=== PATIENT | male | born 1970 | race Two or more races ===

== ENCOUNTER 2024-07-17 09:22 | Emergency (ER) | payer MEDICAID, SELFPAY ==
[2024-07-17 09:30] VITALS: BP 179/122; BP 199/116; PULSE 106; RESP 18; TEMP 36.8; O2SAT 97; BMI 28.8
--- NOTE | 2024-07-17 09:31 | EKG_ITS ---
[facility] Test Date: 2024-07-17 Pat Name: JAYNE MONCADA Department: Room: - Gender: Male Campaign Analyst: : 1970 Requested By: Antonio Sparks (SOFTWARE DEPLOYMENT ENGINEER) Order Number: [id number] Reading MD: Antonio Sparks (SOFTWARE DEPLOYMENT ENGINEER) Measurements Intervals [place] Rate: 94 P: 41 WA: 145 QRS: -27 QRSD: 90 T: 21 QT: 349 QTc: 437 Interpretive Statements SINUS RHYTHM BORDERLINE LEFT AXIS DEVIATION [QRS AXIS < -20] Compared to ECG 07/20/2022 19:33:53 No significant changes /[id number]/[email or web address]/[id number].pdf
--- NOTE | 2024-07-17 09:45 | XR_ITS ---
Examination: PA lateral chest 2 views TECHNIQUE: Upright PA lateral chest 2 views Date and time: July 17, 2024 0952 hours INDICATIONS: Chest pain today. FINDINGS: Normal heart size No lobar pneumonia or pulmonary edema Mild osteopenia IMPRESSION: No lumbar pneumonia or pulmonary edema
[2024-07-17 09:58] VITALS: BP 179/122; PULSE 106
[2024-07-17] MEDS: cloNIDine HCL 0.1 MG TABLET 0.2 MG PO (09:58)
--- NOTE | 2024-07-17 09:58 | PD.EDRME ---
Rapid Medical Screening Exam RME Arrival date/time: 07/17/24 09:22 54-year-old male history of hypertension presents to the emergency department today for complaints of chest pain Chief Complaint: Chest Pain Time Seen by Provider: 07/17/24 09:28 Vital signs: Vital Signs Temperature 98.2 F 07/17/24 09:30 Pulse Rate 106 H 07/17/24 09:30 Respiratory Rate 18 07/17/24 09:30 Blood Pressure 179/122 H 07/17/24 09:30 Pulse Oximetry (%) 97 07/17/24 09:30 Oxygen Delivery Method Room Air 07/17/24 09:30
[2024-07-17 10:36] LABS: Basophils # (Auto) 0.1 Thou/mm3 (0.0-0.2); Basophils % (Auto) 1 % (0-2.5); Eosinophils # (Auto) 0.1 Thou/mm3 (0.0-0.5); Eosinophils % (Auto) 1 % (0-10); Hemoglobin 14.8 g/dL (13.5-16.0); Immature Granulocytes % (Auto) 1 % (0-0); Immature Granulocytes Auto 0.08 Thou/mm3 (0.00-0.00); Lymphocytes # (Auto) 2.4 Thou/mm3 (1.0-4.8); Lymphocytes % (Auto) 24 % (10-50); Mean Corpuscular HGB Conc 34.4 g/dl (31.0-37.0); Mean Corpuscular Hemoglobin 30.3 pg (25.0-35.0); Mean Corpuscular Volume 88 fL (80-100); Monocytes # (Auto) 0.9 Thou/mm3 (0.0-0.8); Monocytes % (Auto) 9 % (0-12); Neutrophils # (Auto) 6.6 Thou/mm3 (1.8-7.7); Neutrophils % (Auto) 65 % (37-80); Nucleated Red Blood Cell % 0 /100 WBC (0); Platelet Count 345 Thou/mm3 (140-440); RDW Standard Deviation 39.2 fL (35.1-43.9); Red Blood Count 4.88 Miln/mm3 (4.50-5.90); White Blood Count 10.2 Thou/mm3 (3.8-10.6)
[2024-07-17 10:48] LABS: Alanine Aminotransferase 26 U/L (10-49); Albumin, Serum 4.8 gm/dL (3.5-5.0); Albumin/Globulin Ratio 1.7 (1.2-2.2); Alkaline Phosphatase 134 U/L (46-116); Anion Gap 9 (7-16); Aspartate Amino Transferase 22 U/L (0-34); BUN/Creatinine Ratio 12 Ratio (12-20); Bilirubin,Total 0.5 mg/dL (0.3-1.2); Blood Urea Nitrogen 12 mg/dL (9-23); Calcium 10.3 mg/dL (8.3-10.6); Calcium (Corrected) 10.3 mg/dL (8.5-10.1); Carbon Dioxide 30.1 mMol/L (20.0-31.0); Chloride 99 mMol/L (98-107); Estimated Creatinine Clearance 83.5 mL/min (>60); Globulin 2.9 gm/dL (2.3-3.5); Glucose 154 mg/dL (74-106); Lipase 35 U/L (12-53); Osmolality,Calculated 278 (275-295); Potassium 3.5 mMol/L (3.4-5.1); Sodium 138 mMol/L (136-145); Total Protein 7.7 gm/dL (5.7-8.2); Troponin I < 0.020 ng/mL (0.0-0.045); eGFR > 60 See Note
[2024-07-17 12:20] VITALS: BP 131/82; PULSE 92; RESP 16; TEMP 37.1; O2SAT 99
--- NOTE | 2024-07-17 12:47 | EDNOTE_ITS ---
ED General RME/HPI General Chief complaint: Chest Pain Stated complaint: RIGHT CHEST PAIN X WEDNESDAY Time Seen by Provider: 07/17/24 09:28 Arrival date/time: 07/17/24 09:22 CC: Chest pain HPI onset 3 days ago persistent in nature does not wax and wane, worsening with flexion extension of his arm deep breath denies cough shortness of breath difficulty breathing. Denies any heavy lifting with his left arm prior to arrival. Patient is awake alert oriented nontoxic-appearing not in any acute distress currently the pain is 2-3 on a 10 scale. RME / HPI RME / HPI narrative: 07/17/24 09:22 54-year-old male history of hypertension presents to the emergency department today for complaints of chest pain Related Data Home Medications ?Medication ?Instructions ?Recorded ?Confirmed hydrochlorothiazide 12.5 mg capsule 1 cap QDAY 2 09/17/21 losartan 50 mg tablet 1 tab QDAY 09/17/21 09/17/21 Previous Rx's ?Medication ?Instructions ?Recorded omeprazole 20 mg capsule,delayed 20 mg PO BID #60 caps 09/17/21 release metoclopramide HCl 10 mg tablet 10 mg PO QID PRN nause a and 04/02/22 (Reglan) vomiting #30 tabs ondansetron HCl 4 mg tablet 4 mg PO TID PRN nausea and 07/21/22 vomiting #20 tabs amoxicillin 875 mg-potassium 1 tab PO BID #14 tabs 04/16 clavulanate 125 mg tablet meloxicam 7.5 mg tablet 7.5 mg PO QDAY #10 tabs 06/23 08/16 Allergies Allergy/AdvReac Type Severity Reaction Status Date / Time No Known Allergies Allergy Verified 07/17/24 09:25 Review of Systems Review of Systems Narrative Review of Systems: GEN: No fever, no chills, no weight loss EYES: No discharge, no visual changes, no pain HEENT: No ear pain, no congestion, no sore throat PULM: No shortness of breath, no cough, no congestion CV: + chest pain, no dyspnea on exertion, no palpitations GI: No nausea, no vomiting, no diarrhea, no pain, no constipation : No frequency, no urgency, no dysuria MUSC/SKEL: No joint pain, no back pain SKIN: No rash PSYCH: No hallucinations, no depression HEME/LYMPH: No easy bleeding or bruising tendencies NEURO: No weakness, no headache Past Medical History Past Medical History CARDIAC: Positive Hypertension; Negative Cardiac Disorders or Congestive Heart Failure RESPIRATORY: Negative Chronic Obstructive Pulmonary Disease (COPD) or Asthma GASTROINTESTINAL: Positive Diverticulitis GENITOURINARY: Negative Renal Disease ENDOCRINE: Negative Diabetes Mellitus Type 1 or Diabetes Mellitus Type 2 HEMATOLOGIC: Negative Sickle Cell Disease Social History SMOKING STATUS: Never smoker ED Exam Narrative Physical exam: [General: Not in any acute distress Head normocephalic HEENT: Eyes pupils are PERRLA EOMs are moist membranes on the subsystems HEENT within acceptable limits Neck is supple nontender Chest equal chest rise nontender to palpation Respiratory: Clear to auscultation no wheezes crackles or rubs CV: Rate rhythm is regular no murmurs rubs or clicks Abdomen is distended secondary to body habitus soft nontender no masses positive bowel sounds all 4 quadrants Back: No CVA tenderness no spinous process tenderness from cervical spine thoracic and lumbar spine Skin: Intact no petechiae rash induration ulceration or crepitus Extremities: Moving all extremity against resistance cap refill less than 2 seconds neurosensory intact Neuro: Awake alert oriented x3 Glascow coma 15 no focal deficits] Course Quality Measures none Orders Category Date Time Status EKG (ED ONLY) *Do not use* NOW Care 07/17/24 09:31 Completed EKG (ED Only) Stat Exams 07/17/24 09:31 Draft XR chest 2V Stat Exams 07/17/24 09:45 Completed CBC Stat Lab 07/17/24 09:55 Completed Comprehensive Metabolic Panel Stat Lab 07/17/24 09:55 Completed Lipase Stat Lab 07/17/24 09:55 Completed Troponin I Stat Lab 07/17/24 09:55 Completed cloNIDine HCL [Catapres] Med 07/17/24 09:45 Discontinued 0.2 mg PO X1 ONE Vital Signs Vital signs: Vital Signs Temperature 98.2 F 07/17/24 09:30 Pulse Rate 106 H 07/17/24 09:30 Respiratory Rate 18 07/17/24 09:30 Blood Pressure 179/122 H 07/17/24 09:30 Pulse Oximetry (%) 97 07/17/24 09:30 Oxygen Delivery Method Room Air 07/17/24 09:30 Discharge Plan Plan Patient Disposition: HOME (Self Care) Patient condition on transfer: Stable Prescriptions/Referrals Prescriptions/Med Rec: New meloxicam 7.5 mg tablet 7.5 mg PO QDAY Qty: 10 0RF No Action losartan 50 mg tablet 1 tab QDAY Patient Comments: TAKE ONE TABLET BY MOUTH ONCE A DAY hydrochlorothiazide 12.5 mg capsule 1 cap QDAY Patient Comments: TAKE ONE CAPSULE BY MOUTH ONCE A DAY omeprazole 20 mg capsule,delayed release(DR/EC) 20 mg PO BID Qty: 60 0RF metoclopramide HCl [Reglan] 10 mg tablet 10 mg PO QID PRN (Reason: nausea and vomiting) Qty: 30 0RF ondansetron HCl 4 mg tablet 4 mg PO TID PRN (Reason: nausea and vomiting) Qty: 20 0RF amoxicillin-pot clavulanate 875-125 mg tablet 1 tab PO BID Qty: 14 0RF Referrals: No Primary/Family,Physician [Primary Care Provider] - In 1 week Problem List Clinical Impression: Chest wall pain Patient/Caregiver Discharge Instructions Education Materials: ED Chest Pain, Noncardiac Print Language: Pashto Stand Alone Forms: [employer] Award Info., Patient Portal Info Letter, Work/School Release PA/[employer]ASS COMMUNICATIONS PROFESSOR Supervising Physician PA/MASS COMMUNICATIONS PROFESSOR Supervising Physician: Jareth Conte ENP [facility] Clinical Information Provided by patient Medical Records Reviewed [facility] Meds/Rx Considered, not Ordered None Labs/Rad/Tests considered, not Ordered None Chronic Illness/Social Conditions which may negatively complicate care or outcome(s)-explain: None or not applicable EKG EKG Interpretation narrative: EKG performed at 0 936 shows a ventricular rate of 94 CO interval 145 QRS of 9 0 QTc 401 is normal sinus rhythm Lab Interpretation Labs: interpreted by me Lab(s) interpretation(s): CBC shows no acute leukocytosis anemia thrombocytopenia CMP shows no significant electrolyte imbalances other than elevated glucose of 154 no renal impairment transaminitis or T. bili elevation Troponin is negative Lipase is negative Imaging Provider imaging interpretation(s): Chest x-ray as interpreted by me read by radiology shows no acute finding requires emergent or immediate intervention. Radiology reports / interpretation(s): Patient has a heart score of 1, with initial troponin negative I suspect this is all musculoskeletal in nature the patient will be discharged home follow-up with his primary care provider. Medication Administration(s) Medication Administration History Discontinued Medications Clonidine (Clonidine Hcl 0.1 Mg Tablet) 0.2 mg PO X1 ONE Stop: 07/17/24 09:46 Last Admin: 07/17/24 09:58 Dose: 0.2 mg Documented By: OA
== END 2024-07-17 12:56 | disposition home or self-care (01) ==
PROVIDERS: Nurse Practitioner Primary Care; Emergency Provider Family Medicine
DX: R07.89 Other chest pain (principal); R94.31 Abnormal electrocardiogram [ECG] [EKG]; I10 Essential (primary) hypertension
CPT/HCPCS: 36415; 71046; 80053; 83690; 84484; 85025; 93005; 99283; A9270